=== PATIENT | female | born 1985 | race African-American/Black ===

== ENCOUNTER 2019-11-20 21:53 | Emergency (ER) | payer MEDICAID ==
[~2019-11-20] VITALS: Ht 165.1 cm; Wt 59.1 kg
[2019-11-20 21:57] VITALS: BP 95/60
[2019-11-20] MEDS: LIDOCAINE 2% 20 ML VIAL. IJ ONE (22:36)
--- NOTE | 2019-11-20 23:43 | PHYS DOC ---
Past Medical History Past Medical History: No Pertinent History Past Surgical History: No Surgical History Alcohol Use: Occasionally Adult General Chief Complaint Chief Complaint: DENTAL PROBLEM HPI HPI Patient is a 34 year old female who presents with dental pain that has been going on since Wednesday. The patient denies fevers and states she has an abscess to left upper part of mouth. Complete ROS were reviewed and found to be within normal limits, except as documented in the HPI Current Medications Current Medications Current Medications Medications (Trade) Dose Ordered Sig/Effie Start Time Stop Time Status Last Admin Dose Admin Lidocaine HCl 20 ml 1X ONCE 11/20/19 23:00 11/20/19 23:01 DC 11/20/19 22:36 20 ML Allergies Allergies Allergies Coded Allergies Type Severity Reaction Last Updated Verified No Known Drug Allergies 11/20/19 No Physical Exam Physical Exam Constitutional: Well developed, well nourished, no acute distress, non-toxic appearance. [] HENT: Normocephalic, atraumatic, bilateral external ears normal, oropharynx moist, no oral exudates, nose normal. Has a large abscess to left upper mouth. Eyes: PERRLA, EOMI, conjunctiva normal, no discharge. [] Back: No tenderness, no CVA tenderness. [] Extremities: No tenderness, no cyanosis, no clubbing, ROM intact, no edema. [] Neurologic: Alert and oriented X 3, normal motor function, normal sensory function, no focal deficits noted. [] Psychologic: Affect normal, judgement normal, mood normal. [] Current Patient Data Vital Signs Vital Signs Date Time Temp Pulse Resp B/P (MAP) Pulse Ox O2 Delivery O2 Flow Rate FiO2 11/20/19 21:57 98.5 95 17 95/60 (72) 96 Room Air 98.5 EKG EKG [] Radiology/Procedures Radiology/Procedures [] Course & Med Decision Making Course & Med Decision Making Pertinent Labs and Imaging studies reviewed. (See chart for details) Patient has dental abscess. Went into room to drain abscess and attempted 3 times. Patient became upset the I asked her to lay flat to have abscess drained. The first time I attempted drainage the patient grabbed my arm. Second time she moved her head and was opening and closing mouth. 3rd time she moved head away as well. I discussed with patient the importance of staying still while I attempted to numb her mouth and she became angry and said that she was not going to allow me to drain abscess if she had to lay flat. When I reitterated to patient the importance of compliance with exam the patient stomped out of room. I discussed with patient and gave the importance of the abscess being drained. Dragon Disclaimer Dragon Disclaimer This electronic medical record was generated, in whole or in part, using a voice recognition dictation system. Departure Departure Impression: Primary Impression: Dental abscess Additional Impression: Eloped from emergency department Disposition: 01 HOME, SELF-CARE Condition: STABLE Referrals: NO PCP (PCP) Problem Qualifiers ARETHA PETERS APRN Nov 20, 2019 23:43
== END 2019-11-20 23:34 | disposition home or self-care (01) ==
LOC: ER 21:53
DX: K04.7 Periapical abscess without sinus (principal); K12.2 Cellulitis and abscess of mouth
CPT/HCPCS: 96372; 99283; J2001